=== PATIENT | female | born 1995 | race Two or more races ===

== ENCOUNTER 2023-01-20 06:15 | Inpatient (IN) ==
[2023-01-20] MEDS ORDERED: NS 100 ML IV 100 ML ONE (06:27)
[2023-01-20] MEDS ORDERED: ANCEF VIAL 1 GRAM ONE (06:28)
[2023-01-20] MEDS ORDERED: LR 1,000 ML IV 1,000 ML IV ONE ×5 (06:29→08:31)
[2023-01-20] MEDS ORDERED: ANCEF VIAL 1 GRAM IVP ONE (06:36)
[2023-01-20 07:06] LABS: BASOPHILS % (AUTO) 0.2 % (0.2-1.0); EOSINOPHILS % (AUTO) 0.5 % (0.9-2.9); HEMATOCRIT 37.2 % (36.0-47.0); HEMOGLOBIN 12.3 g/dL (12.0-16.0); LYMPHOCYTES # (AUTO) 1.7 X10^3/uL (1.3-2.9); LYMPHOCYTES % (AUTO) 21.9 % (21.0-51.0); MEAN CORPUSCULAR HGB CONC 33.1 g/dL (33.0-35.0); MEAN CORPUSCULAR VOLUME 84.5 fL (80.0-100.0); MONOCYTES # (AUTO) 0.4 x10^3/uL (0.3-0.8); MONOCYTES % (AUTO) 4.7 % (0.0-13.0); NEUTROPHILS # (AUTO) 5.6 x10^3/uL (2.2-4.8); NEUTROPHILS % (AUTO) 72.7 % (42.0-75.0); PLATELET COUNT 288 X10^3/uL (150.0-450.0); RED CELL DISTRIBUTION WIDTH 15.3 % (11.6-16.5); WHITE BLOOD COUNT 7.7 X10^3/uL (3.6-10.0)
[2023-01-20] MEDS ORDERED: DILAUDID INJ ONE (07:10)
[2023-01-20] MEDS ORDERED: PITOCIN ONE ×2 (07:13→08:31)
[2023-01-20] MEDS ORDERED: MARCAINE SPINAL ONE (07:13)
[2023-01-20 07:16] LABS: BLOOD UREA NITROGEN 4 mg/dL (7-18); CALCIUM 8.1 mg/dL (8.5-10.1); CARBON DIOXIDE 23.7 mmol/L (21-32); CREATININE 0.42 mg/dL (0.55-1.02); GLUCOSE 77 mg/dL (65-99); eGFR NON BLACK RACES > 60 (>60)
[2023-01-20 07:31] LABS: CHLORIDE 102 mmol/L (98-107); SODIUM 136 mmol/L (136-145)
[2023-01-20 07:42] LABS: POTASSIUM 2.9 mmol/L (3.5-5.1)
[2023-01-20] MEDS ORDERED: EPHEDRINE SULFATE INJ ONE (07:57)
[2023-01-20] MEDS ORDERED: OFIRMEV IV 1000 MG VIAL 1,000 MG/100 ML VIAL IV ONE (08:00)
[2023-01-20] MEDS ORDERED: DECADRON INJ ONE (08:15)
[2023-01-20] MEDS ORDERED: TORADOL 30 MG VIAL ONE (08:15)
[2023-01-20] MEDS ORDERED: VERSED ONE (08:27)
[2023-01-20] MEDS ORDERED: NARCAN INJ IVP PRN (08:56)
[2023-01-20] MEDS ORDERED: BENADRYL INJ 50 MG VIAL IVP PRN ×2 (08:56→08:58)
[2023-01-20] MEDS ORDERED: ZOFRAN INJ 4 MG VIAL IVP PRN ×2 (08:56→08:58)
[2023-01-20] MEDS ORDERED: TORADOL 30 MG VIAL IVP PRN (08:56)
[2023-01-20] MEDS ORDERED: PERCOCET TAB 5/325 MG PO PRN (08:56)
[2023-01-20] MEDS ORDERED: DILAUDID INJ IVP PRN (08:58)
[2023-01-21 05:51] LABS: HEMATOCRIT 31.7 % (36.0-47.0); HEMOGLOBIN 10.9 g/dL (12.0-16.0)
[2023-01-21] MEDS ORDERED: NORCO 7.5/325 MG TAB PO PRN (09:00)
[2023-01-21] MEDS ORDERED: MOTRIN TAB 800 MG PO PRN (09:25)
[2023-01-21] MEDS: K-DUR TAB 20 MEQ PO SCH (09:55)
[2023-01-22 05:20] LABS: BASOPHILS % (AUTO) 0.3 % (0.2-1.0); EOSINOPHILS # (AUTO) 0.1 x10^3/uL (0.0-0.2); EOSINOPHILS % (AUTO) 1.3 % (0.9-2.9); HEMATOCRIT 31.7 % (36.0-47.0); HEMOGLOBIN 10.8 g/dL (12.0-16.0); LYMPHOCYTES % (AUTO) 26.5 % (21.0-51.0); MEAN CORPUSCULAR HEMOGLOBIN 28.8 pg (27.0-34.0); MEAN CORPUSCULAR HGB CONC 34.2 g/dL (33.0-35.0); MEAN CORPUSCULAR VOLUME 84.3 fL (80.0-100.0); MEAN PLATELET VOLUME 7.2 fL (7.4-11.0); MONOCYTES # (AUTO) 0.5 x10^3/uL (0.3-0.8); MONOCYTES % (AUTO) 6.3 % (0.0-13.0); NEUTROPHILS # (AUTO) 5.1 x10^3/uL (2.2-4.8); NEUTROPHILS % (AUTO) 65.6 % (42.0-75.0); PLATELET COUNT 297 X10^3/uL (150.0-450.0); RED BLOOD COUNT 3.76 X10^6/uL (3.5-5.4); WHITE BLOOD COUNT 7.7 X10^3/uL (3.6-10.0)
[2023-01-22 05:31] LABS: BLOOD UREA NITROGEN 9 mg/dL (7-18); CALCIUM 8.3 mg/dL (8.5-10.1); CARBON DIOXIDE 25.8 mmol/L (21-32); CHLORIDE 107 mmol/L (98-107); CREATININE 0.57 mg/dL (0.55-1.02); GLUCOSE 73 mg/dL (65-99); POTASSIUM 3.1 mmol/L (3.5-5.1); SODIUM 143 mmol/L (136-145); eGFR NON BLACK RACES > 60 (>60)
[2023-01-22] MEDS: K-DUR TAB 20 MEQ PO SCH (08:07)
[2023-01-22] MEDS ORDERED: DULCOLAX SUPPOSITORY 10 MG RECTAL ONE (09:07)
[2023-01-22 09:20] VITALS: RESP 18; TEMP 98.1
[2023-01-22 12:22] VITALS: BP 98/62; PULSE 76; O2SAT 97
== END 2023-01-22 14:06 | disposition home or self-care (01) | DRG 784 ==
LOC: LD 06:15 → MED/SURG 10:21
PROVIDERS: ADMIT Obstetrics & Gynecology Obstetrics; ATTEND Obstetrics & Gynecology Obstetrics
DX: O34.211 Maternal care for low transverse scar from previous cesarean delivery; Z3A.39 39 weeks gestation of pregnancy; N85.8 Other specified noninflammatory disorders of uterus; O98.313 Other infections with a predominantly sexual mode of transmission complicating pregnancy, third trimester; A56.8 Sexually transmitted chlamydial infection of other sites; Z37.0 Single live birth; Z30.2 Encounter for sterilization